=== PATIENT | male | born 1935 | race Caucasian/White ===

== ENCOUNTER 2019-10-03 05:35 | Inpatient (IN) ==
[2019-09-19 13:36] LABS: Basophils # 0.1 10*3/uL (0.0-0.2); Eosinophils # 0.3 10*3/uL (0.0-0.87); Eosinophils % 3.7 % (0.00-10.9); Hematocrit 39.4 VOL% (42.0-52.0); Hemoglobin 12.5 GM/DL (14.0-18.0); Immature Granulocytes % 0.3 %; Immature Granulocytes Absolute 0.03 #; Lymphocytes # 1.6 10*3/uL (1.4-4.0); Mean Corpuscular HGB Conc 31.7 GM/DL (32-36); Mean Corpuscular Volume 95.6 FL (87-102); Mean Platelet Volume 9.4 FL (9.6-12.0); Monocytes % 14.8 % (1.7-12.7); Neutrophils % 63.2 % (38.7-73.9); Platelet Count 231 T/CUMM (130-400); Red Blood Count 4.12 MC/CUMM (3.8-5.5); Red Cell Distribution Width 13.4 % (9.3-17.3); White Blood Count 9.2 T/CUMM (4-12)
[2019-09-19 13:45] LABS: PT Patient Result 10.6 SECS (9.6-12.2); Partial Thromboplastin Time 26.4 SECS (20.8-36.0)
[2019-09-19 14:03] LABS: Albumin 3.5 G/DL (3.4-5.0); Bilirubin,Total 0.6 MG/DL (0.2-1.0); Calcium 9.5 MG/DL (8.5-10.1); Total Protein 7.7 G/DL (6.4-8.3)
[2019-10-03] MEDS ORDERED: VANCOMYCIN 1,000 MG VIAL ONE (06:06)
[2019-10-03] MEDS ORDERED: ACETAMINOPHEN 500 MG TABLET PO ONE (06:24)
[2019-10-03] MEDS ORDERED: FAMOTIDINE 20 MG TABLET PO ONE (06:24)
[2019-10-03] MEDS ORDERED: GABAPENTIN 400 MG CAPSULE PO ONE (06:24)
[2019-10-03] MEDS ORDERED: ACETAMINOPHEN 500 MG TABLET ONE (06:28)
[2019-10-03] MEDS ORDERED: GABAPENTIN 400 MG CAPSULE ONE (06:28)
[2019-10-03] MEDS ORDERED: FAMOTIDINE 20 MG TABLET ONE (06:29)
[2019-10-03] MEDS ORDERED: VANCOMYCIN INJ 1,000 MG in SODIUM CHLORIDE 0.9% 250 ML IV ONE (06:30)
[2019-10-03] MEDS ORDERED: LACTATED RINGERS 1,000 ML IV SCH (06:30)
[2019-10-03] MEDS ORDERED: CLINDAMYCIN INJ 900 MG in PREMIX 1 EACH IV ONE (06:30)
[2019-10-03] MEDS ORDERED: LIDOCAINE 2% 5 ML VIAL ONE ×2 (06:35→08:58)
[2019-10-03] MEDS ORDERED: MIDAZOLAM 2 MG/2 ML VIAL ONE (06:36)
[2019-10-03] MEDS ORDERED: ROPIVACAINE 0.5% 30 ML VIAL ONE (06:36)
[2019-10-03] MEDS ORDERED: fentaNYL 100 MCG/2 ML VIAL ONE ×2 (06:36→08:58)
[2019-10-03] MEDS ORDERED: DEXAMETHASONE 4 MG/1 ML VIAL ONE (06:36)
[2019-10-03] MEDS ORDERED: EPINEPHrine 1 MG/ML VIAL ONE (06:36)
[2019-10-03] MEDS ORDERED: CLINDAMYCIN INJ 50 ML IV ONE (06:44)
[2019-10-03] MEDS ORDERED: BACITRACIN OINT 0.9 GM PACK TOP ONE (06:48)
[2019-10-03] MEDS ORDERED: ALBUTEROL 2.5 MG/3 ML NEB RESP TX PRN (07:17)
[2019-10-03] MEDS ORDERED: oxyCODONE IR 5 MG TABLET PO PRN ×2 (07:18)
[2019-10-03] MEDS ORDERED: ONDANSETRON 4 MG/2 ML VIAL IV PRN ×2 (07:18→08:48)
[2019-10-03] MEDS ORDERED: MAGNESIUM HYDROXIDE SUSP 30 ML UDCUP PO PRN (07:18)
[2019-10-03] MEDS ORDERED: KETOROLAC 15 MG/1 ML VIAL IV PRN (07:18)
[2019-10-03] MEDS ORDERED: MORPHINE 4 MG/1 ML VIAL IV PRN ×2 (07:18)
[2019-10-03] MEDS ORDERED: PROMETHAZINE INJ 25 MG in SODIUM CHLORIDE 0.9% 50 ML IV PRN (08:48)
[2019-10-03] MEDS ORDERED: diphenhydrAMINE 50 MG/1 ML VIAL IV PRN (08:48)
[2019-10-03] MEDS ORDERED: MEPERIDINE 25 MG/1 ML VIAL IV PRN (08:48)
[2019-10-03] MEDS ORDERED: propofoL 200 MG/20 ML VIAL IV ONE (08:58)
[2019-10-03] MEDS ORDERED: SEVOFLURANE 1 UNIT/15 MINUTE INH ONE (08:58)
[2019-10-03] MEDS ORDERED: TRANEXAMIC ACID 1,000 MG/10 ML VIAL ONE (08:59)
[2019-10-03] MEDS ORDERED: SODIUM CHLORIDE 0.9% 200 ML IV ONE (08:59)
[2019-10-03] MEDS ORDERED: ROCURONIUM 100 MG/10 ML VIAL IV ONE (08:59)
[2019-10-03] MEDS ORDERED: PHENYLEPHRINE 1 MG/10 ML SYRINGE IV ONE ×2 (08:59)
[2019-10-03] MEDS: DIGOXIN 0.125 MG TABLET PO SCH (10:25)
[2019-10-03] MEDS: DOCUSATE SODIUM 100 MG CAPSULE PO SCH ×2 (10:25→20:34)
[2019-10-03] MEDS: DULoxetine 30 MG CAPSULE PO SCH (10:25)
[2019-10-03] MEDS: ATORVASTATIN 20 MG TABLET PO SCH (10:25)
[2019-10-03] MEDS: LACTATED RINGERS 1,000 ML IV SCH ×2 (10:26→17:05)
[2019-10-03] MEDS: FLUTICASONE 50 MCG NASAL SPRAY 16 GM BOTTLE BOTH NARES SCH (10:26)
[2019-10-03] MEDS: CETIRIZINE 10 MG TABLET PO SCH (10:26)
[2019-10-03] MEDS: BISOPROLOL/HCTZ 2.5-6.25 MG TABLET PO SCH (10:38)
[2019-10-03] MEDS: IPRATROPIUM 500 MCG/2.5 ML NEB RESP TX SCH ×3 (11:10→20:55)
[2019-10-03] MEDS ORDERED: LACTATED RINGERS 500 ML IV ONE ×2 (11:18→12:49)
[2019-10-03] MEDS: CLINDAMYCIN INJ 900 MG in PREMIX 1 EACH IV SCH ×3 (16:43→22:14)
[2019-10-04 06:08] LABS: Basophils # 0.1 10*3/uL (0.0-0.2); Basophils % 0.7 % (0.0-0.8); Eosinophils # 0.1 10*3/uL (0.0-0.87); Eosinophils % 0.3 % (0.00-10.9); Hemoglobin 10.9 GM/DL (14.0-18.0); Immature Granulocytes % 0.5 %; Immature Granulocytes Absolute 0.08 #; Lymphocytes # 1.4 10*3/uL (1.4-4.0); Lymphocytes % 9.4 % (21.2-54.2); Mean Corpuscular HGB Conc 32.1 GM/DL (32-36); Mean Corpuscular Volume 96.3 FL (87-102); Monocytes % 16.2 % (1.7-12.7); Neutrophils % 72.9 % (38.7-73.9); Platelet Count 184 T/CUMM (130-400); Red Blood Count 3.53 MC/CUMM (3.8-5.5); Red Cell Distribution Width 13.7 % (9.3-17.3); White Blood Count 15.1 T/CUMM (4-12)
[2019-10-04 06:17] LABS: Calcium 8.8 MG/DL (8.5-10.1); Osmolality,Calculated 289.7 MOS/KG (273-304)
[2019-10-04 07:02] LABS: Eosinophils 2 % (0-10); Lymphocytes 12 % (20-55); Platelet Estimate Adequate; Segmented Neutrophils 74 % (50-85); Total Cells Counted 100
[2019-10-04 07:03] LABS: Hypochromasia Slight; Ovalocytes Slight
[2019-10-04] MEDS: IPRATROPIUM 500 MCG/2.5 ML NEB RESP TX SCH ×4 (07:19→19:15)
[2019-10-04] MEDS: DULoxetine 30 MG CAPSULE PO SCH (09:05)
[2019-10-04] MEDS: ASPIRIN CHEW 81 MG TABLET PO SCH (09:06)
[2019-10-04] MEDS: ATORVASTATIN 20 MG TABLET PO SCH (09:06)
[2019-10-04] MEDS: DIGOXIN 0.125 MG TABLET PO SCH (09:06)
[2019-10-04] MEDS: CLOPIDOGREL 75 MG TABLET PO SCH (09:06)
[2019-10-04] MEDS: DOCUSATE SODIUM 100 MG CAPSULE PO SCH ×2 (09:06→21:26)
[2019-10-04] MEDS: CETIRIZINE 10 MG TABLET PO SCH (09:06)
[2019-10-04] MEDS: FLUTICASONE 50 MCG NASAL SPRAY 16 GM BOTTLE BOTH NARES SCH (09:11)
[2019-10-04] MEDS: LACTATED RINGERS 1,000 ML IV SCH ×2 (18:19)
[2019-10-05] MEDS: LACTATED RINGERS 1,000 ML IV SCH (04:05)
[2019-10-05 06:05] LABS: Basophils # 0.1 10*3/uL (0.0-0.2); Basophils % 0.4 % (0.0-0.8); Eosinophils # 0.1 10*3/uL (0.0-0.87); Eosinophils % 0.3 % (0.00-10.9); Hematocrit 32.3 VOL% (42.0-52.0); Hemoglobin 10.3 GM/DL (14.0-18.0); Immature Granulocytes % 0.8 %; Immature Granulocytes Absolute 0.14 #; Lymphocytes # 1.5 10*3/uL (1.4-4.0); Mean Corpuscular HGB Conc 31.9 GM/DL (32-36); Mean Corpuscular Volume 95.6 FL (87-102); Mean Platelet Volume 10.3 FL (9.6-12.0); Monocytes % 18.4 % (1.7-12.7); Neutrophils % 71.1 % (38.7-73.9); Platelet Count 176 T/CUMM (130-400); Red Blood Count 3.38 MC/CUMM (3.8-5.5); Red Cell Distribution Width 13.8 % (9.3-17.3); White Blood Count 17.2 T/CUMM (4-12)
[2019-10-05 06:20] LABS: Calcium 8.9 MG/DL (8.5-10.1)
[2019-10-05 06:24] LABS: Hypochromasia 1+; Lymphocytes 11 % (20-55); Ovalocytes Slight; Platelet Estimate Adequate; Segmented Neutrophils 73 % (50-85); Total Cells Counted 100
[2019-10-05] MEDS: IPRATROPIUM 500 MCG/2.5 ML NEB RESP TX SCH ×4 (07:20→19:25)
[2019-10-05] MEDS: CETIRIZINE 10 MG TABLET PO SCH (08:51)
[2019-10-05] MEDS: ATORVASTATIN 20 MG TABLET PO SCH (08:51)
[2019-10-05] MEDS: ASPIRIN CHEW 81 MG TABLET PO SCH (08:51)
[2019-10-05] MEDS: DOCUSATE SODIUM 100 MG CAPSULE PO SCH ×2 (08:51→20:20)
[2019-10-05] MEDS: DULoxetine 30 MG CAPSULE PO SCH (08:51)
[2019-10-05] MEDS: CLOPIDOGREL 75 MG TABLET PO SCH (08:51)
[2019-10-05] MEDS: BISOPROLOL/HCTZ 2.5-6.25 MG TABLET PO SCH (08:52)
[2019-10-05] MEDS: FLUTICASONE 50 MCG NASAL SPRAY 16 GM BOTTLE BOTH NARES SCH (08:53)
[2019-10-05 12:16] LABS: Troponin I 0.527 NG/ML (0.00-0.045)
[2019-10-05] MEDS: DIGOXIN 0.125 MG TABLET PO SCH (13:04)
[2019-10-06 06:20] LABS: Basophils % 0.2 % (0.0-0.8); Eosinophils % 0.2 % (0.00-10.9); Hematocrit 31.5 VOL% (42.0-52.0); Immature Granulocytes % 0.6 %; Immature Granulocytes Absolute 0.08 #; Lymphocytes # 0.7 10*3/uL (1.4-4.0); Lymphocytes % 5.5 % (21.2-54.2); Mean Corpuscular HGB Conc 31.7 GM/DL (32-36); Mean Corpuscular Volume 96.3 FL (87-102); Mean Platelet Volume 10.3 FL (9.6-12.0); Neutrophils % 81.5 % (38.7-73.9); Platelet Count 165 T/CUMM (130-400); Red Blood Count 3.27 MC/CUMM (3.8-5.5); Red Cell Distribution Width 13.8 % (9.3-17.3); White Blood Count 13.2 T/CUMM (4-12)
[2019-10-06] MEDS: IPRATROPIUM 500 MCG/2.5 ML NEB RESP TX SCH ×2 (07:10→11:11)
[2019-10-06] MEDS: DULoxetine 30 MG CAPSULE PO SCH (08:56)
[2019-10-06] MEDS: ASPIRIN CHEW 81 MG TABLET PO SCH (08:57)
[2019-10-06] MEDS: CLOPIDOGREL 75 MG TABLET PO SCH (08:57)
[2019-10-06] MEDS: CETIRIZINE 10 MG TABLET PO SCH (08:57)
[2019-10-06] MEDS: DOCUSATE SODIUM 100 MG CAPSULE PO SCH (08:57)
[2019-10-06] MEDS: ATORVASTATIN 20 MG TABLET PO SCH (08:57)
[2019-10-06] MEDS: FLUTICASONE 50 MCG NASAL SPRAY 16 GM BOTTLE BOTH NARES SCH (08:57)
[2019-10-06 11:52] VITALS: BP 97/52
[2019-10-06] MEDS: DIGOXIN 0.125 MG TABLET PO SCH (12:42)
== END 2019-10-06 14:05 | disposition home health service (06) | DRG 470 ==
LOC: N.OR 05:35 → N.SDSINP 05:36 → N.3E 09:31
PROVIDERS: ADMIT Orthopaedic Surgery; ATTEND Orthopaedic Surgery